=== PATIENT | male | born 1995 | race Caucasian/White ===

== ENCOUNTER 2019-12-31 19:42 | Emergency (ER) | payer OTHER ==
[~2019-12-31] VITALS: Ht 175.3 cm; Wt 104.0 kg
[2019-12-31 20:16] VITALS: Ht 175.3 cm; Wt 104.0 kg
[2019-12-31 20:52] VITALS: BP 128/74
== END 2019-12-31 20:52 | disposition home or self-care (01) ==
LOC: ED 19:42
DX: A53.9 Syphilis, unspecified (principal); I10 Essential (primary) hypertension; E11.9 Type 2 diabetes mellitus without complications; Z88.8 Allergy status to other drugs, medicaments and biological substances
CPT/HCPCS: J0561